=== PATIENT | male | born 1950 | race Caucasian/White ===

== ENCOUNTER 2024-12-15 11:16 | Outpatient (CLI) | payer MEDICARE, OTHER, SELFPAY ==
--- OUTSIDE RECORDS SUMMARY | 2002-05-01 19:35 | XMS_ITS | Encounter Summary ---
Author Organization [facility] Address [address] [place] [address] Phone Support Name Relationship Address Phone Do Ortiz Emergency Contact update [phone] Care Team Providers Care Level Vial Inspector Name Role Phone Unavailable Primary Care Provider Unavailabl e Encounter Details Date Type Department Care Team (Latest Contact Info) Description 05/01/2002 4:35 PM PST Hospital Encounter [facility] [address] [place] [id number] Jaylon Cleary D.D.S. One-Time Outpatient Social History Tobacco Use Types Packs/Day Years Used Date Smoking Tobacco: Former Cigarettes 1 15 0 07/12/1979 - 07/11/1994 Smokeless Tobacco: Never Alcohol Use Standard Drinks/Week Comments Not Currently 3 (1 standard drink = 0.6 oz pur e alcohol) 4/week AUDIT-C Answer Date Recorded Frequency of Alcohol Consumption 2-4 times a sat09/29/2018 Average Number of Drinks 1 or 2 019 Frequency of Binge Drinking Never 09/11 PHQ-2 Answer Date Recorded PHQ-2 Total Score 0 10/17/2022 Sex and Gender Information Value Date Recorded Sex Assigned at Not on file Legal Sex Male 4:47 AM PST Gender Identity Not on file Sexual Orientation Not on file documented as of this encounter Functional Status documented as of this encounter Plan of Treatment Not on file documented as of this encounter Visit Diagnoses Not on filedocumented in this encounter
--- NOTE | 2024-12-15 11:21 | XR_ITS ---
FINAL REPORT CLINICAL HISTORY: Assessment of fecal burden FINDINGS: A single supine view of the abdomen was obtained. There is no prior for comparison. The bowel gas pattern is normal. There is a normal amount of stool in the colon. There are no pathologic calcifications. Osseous structures demonstrate postoperative changes of the lower lumbar spine and bilateral hips. IMPRESSION: No acute intraabdominal abnormality. Normal amount of stool. Reviewed, Interpreted and Dictated by Julia Jose MD Transcribed by Elke Paiz Authenticated and [facility]
--- OUTSIDE RECORDS SUMMARY | 2024-12-15 11:21 | XMS_ITS ---
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 Pertinent negatives include: no family history of melanoma. He is being monitored for concerning skin lesions on an annual basis. He notes that previously treated site(s) are doing well, no recurrences. His current skin lesions are located on the body throughout. The lesions are asymptomatic. Allergies, Adverse Reactions, Alerts Substance RxNorm Reaction(s) Severity Status Start Da te No Known Allergies unspecified active Medications Medication Generic Name RxNorm Strength Strength Unit Route Dose Dose Form Frequency Date Started Date Ended Status Indication Sig clindamycin phosphate clindamy mike phosphat e 19740219 1 % Topica l 1 lotio n QD 04/27/19 20 active Appl y to pimp le like irri jaden on from shav ing Once or twic e beverly y as need ed for flar es. tretinoin tretinoi n 391139 0.025 % Topica l 1 cream Qhs 01/23/20 23 active Appl y on face twic e week ly, grad uall y incr ease as tole rate d to nigh tly. triamcinolo ne acetonide triamcin olone acetonid e 5547107 0.1 % Topica l ointm ent Bid 12/01/19 20 active Appl y to rash on the lowe r legs 1-2 time s beverly y as need ed triamcinolo ne acetonide triamcin olone acetonid e 0434603 0.1 % Topica l 1 ointm ent BID 01/24/20 22 active Rash Appl y to affe cted area s twic e a day for up to two week s as need ed for rash . amoxicillin amoxicil tina 366838 500 mg Oral 1 capsu le prn 09/04/19 18 suspend ed Take 4 tabl ets 1 hour prio r to surg kaitlin amoxicillin amoxicil tina 859004 500 mg Oral capsu le 03/25/19 25 active Take 1 po bid x 5 days doxycycline hyclate doxycycl ine hyclate 8936053 100 mg Oral capsu le 12/01/19 20 suspend ed Take one po bid with a full non dair y meal for 10 days doxycycline hyclate doxycycl ine hyclate 4632668 100 mg Oral capsu le Bid 06/10/19 21 active Take one pill by mout h twic e a day with a full non dair y meal for 10 days . doxycycline hyclate doxycycl ine hyclate 2204416 100 mg Oral 1 capsu le Bid 09/12/19 23 active Post op Take one pill by by mout h twic e a day with a non dair y meal and a full glas s of ramya grady Lipitor atorvast atin 022380 10 mg Oral 1 table t qd 09/30/19 14 active Randi Aspirin aspirin 81 mg po 1 table t qd active BETA LUCILLE NULL 1 qd 09/30/19 14 suspend ed CELEBREX 200 MG CAPS NULL 09/11 10/31 14 suspend ed HYDROXYZINE HCL 10 MG ORAL TABS NULL 60 16 suspend ed TRIAMCINOLO NE ACETONIDE 0.1 % CREA NULL 1 03/22 16 2015 suspend ed TRIAMCINOLO NE ACETONIDE 0.1 % CREA NULL 120 10/26 14 2013 suspend ed TRIAMCINOLO NE ACETONIDE 0.1 % EXT CREA NULL 454 01/26/20 16 suspend ed Problems Problem Code Type Status Date of Diagnosis Date of Resolution Neoplasm of uncertain behavior of skin (disorder) 05101368(S NOMED) Diagnosis active 12/08/2024 Actinic keratosis (disorder) 669915615( SNOMED) Diagnosis active 12/08/2024 History of malignant melanoma of the skin (situation) 2369004532 08(SNOMED) Diagnosis active 12/08/2024 History of malignant neoplasm of skin (situation) 090411197( SNOMED) Diagnosis active 12/08/2024 Seborrheic keratosis (disorder) 099165467( SNOMED) Diagnosis active 12/08/2024 Melanocytic nevus of trunk (disorder) 627591599( SNOMED) Diagnosis active 12/08/2024 Disorder of pigmentation (disorder) 370488398( SNOMED) Diagnosis active 12/08/2024 Hemangioma of skin and subcutaneous tissue (disorder) 044800109( SNOMED) Diagnosis active 12/08/2024 Skin changes due to chronic exposure to non-ionizing radiation (disorder) 846979756( SNOMED) Diagnosis active 12/08/2024 Patient encounter status (finding) 208356648( SNOMED) Diagnosis active 12/08/2024 Actinic keratosis (disorder) 909774080( SNOMED) Diagnosis active 09/02/2024 History of malignant melanoma of the skin (situation) 9163095894 08(SNOMED) Diagnosis active 09/02/2024 History of malignant neoplasm of skin (situation) 252117123( SNOMED) Diagnosis active 09/02/2024 Seborrheic keratosis (disorder) 162944309( SNOMED) Diagnosis active 09/02/2024 Melanocytic nevus of trunk (disorder) 868961018( SNOMED) Diagnosis active 09/02/2024 Disorder of pigmentation (disorder) 121390546( SNOMED) Diagnosis active 09/02/2024 Hemangioma of skin and subcutaneous tissue (disorder) 950610477( SNOMED) Diagnosis active 09/02/2024 Skin changes due to chronic exposure to non-ionizing radiation (disorder) 681705120( SNOMED) Diagnosis active 09/02/2024 Patient encounter status (finding) 371654800( SNOMED) Diagnosis active 09/02/2024 Surgical follow-up (finding) 736099321( SNOMED) Diagnosis active 07/28/2024 Surgical follow-up (finding) 633438149( SNOMED) Diagnosis active 07/16/2024 Melanoma in situ of trunk (disorder) 150794673( SNOMED) Diagnosis active 07/15/2024 Neoplasm of uncertain behavior of skin (disorder) 64795837(S NOMED) Diagnosis active 06/22/2024 History of malignant neoplasm of skin (situation) 717739876( SNOMED) Diagnosis active 06/22/2024 Seborrheic keratosis (disorder) 188606914( SNOMED) Diagnosis active 06/22/2024 Melanocytic nevus of trunk (disorder) 833486706( SNOMED) Diagnosis active 06/22/2024 Disorder of pigmentation (disorder) 902585348( SNOMED) Diagnosis active 06/22/2024 Hemangioma of skin and subcutaneous tissue (disorder) 875162082( SNOMED) Diagnosis active 06/22/2024 Skin changes due to chronic exposure to non-ionizing radiation (disorder) 020189858( SNOMED) Diagnosis active 06/22/2024 Patient encounter status (finding) 145034417( SNOMED) Diagnosis active 06/22/2024 Surgical follow-up (finding) 204394213( SNOMED) Diagnosis active 06/11/2024 Surgical follow-up (finding) 846090944( SNOMED) Diagnosis active 05/06/2024 Surgical follow-up (finding) 890231806( SNOMED) Diagnosis active 04/15/2024 Patient encounter status (finding) 528567731( SNOMED) Diagnosis active 04/15/2024 Surgical follow-up (finding) 912725978( SNOMED) Diagnosis active 04/03/2024 Basal cell carcinoma of nose (disorder) 806980947( SNOMED) Diagnosis active 03/25/2024 Surgical follow-up (finding) 883904646( SNOMED) Diagnosis active 03/02/2024 Basal cell carcinoma of upper extremity (disorder) 448002616( SNOMED) Diagnosis active 02/17/2024 Basal cell carcinoma of nose (disorder) 421570368( SNOMED) Diagnosis active 02/17/2024 Neoplasm of uncertain behavior of skin (disorder) 49325935(S NOMED) Diagnosis active 01/01/2024 History of malignant neoplasm of skin (situation) 250880918( SNOMED) Diagnosis active 01/01/2024 Seborrheic keratosis (disorder) 191500248( SNOMED) Diagnosis active 01/01/2024 Melanocytic nevus of trunk (disorder) 481154667( SNOMED) Diagnosis active 01/01/2024 Disorder of pigmentation (disorder) 824066506( SNOMED) Diagnosis active 01/01/2024 Hemangioma of skin and subcutaneous tissue (disorder) 926121775( SNOMED) Diagnosis active 01/01/2024 Skin changes due to chronic exposure to non-ionizing radiation (disorder) ( SNOMED) Diagnosis active 01/01/2024 Patient encounter status (finding) 438513237( SNOMED) Diagnosis active 01/01/2024 History of malignant neoplasm of skin (situation) 342512941( SNOMED) Diagnosis active 10/01/2023 Basal cell carcinoma of nose (disorder) 075245173( SNOMED) Diagnosis active 07/30/2023 Basal cell carcinoma of nose (disorder) 889566063( SNOMED) Diagnosis active 07/24/2023 Neoplasm of uncertain behavior of skin (disorder) 77903809(S NOMED) Diagnosis active 06/26/2023 Actinic keratosis (disorder) ( SNOMED) Diagnosis active 04/29/2023 Acne vulgaris (disorder) 86374354(S NOMED) Diagnosis active 04/29/2023 History of malignant neoplasm of skin (situation) 217274228( SNOMED) Diagnosis active 04/29/2023 Seborrheic keratosis (disorder) 939255611( SNOMED) Diagnosis active 04/29/2023 Melanocytic nevus of trunk (disorder) 232304417( SNOMED) Diagnosis active 04/29/2023 Disorder of pigmentation (disorder) 982634618( SNOMED) Diagnosis active 04/29/2023 Hemangioma of skin and subcutaneous tissue (disorder) 445186688( SNOMED) Diagnosis active 04/29/2023 Skin changes due to chronic exposure to non-ionizing radiation (disorder) ( SNOMED) Diagnosis active 04/29/2023 Patient encounter status (finding) 254733034( SNOMED) Diagnosis active 04/29/2023 Actinic keratosis (disorder) ( SNOMED) Diagnosis active 01/22/2023 Acne vulgaris (disorder) 25110596(S NOMED) Diagnosis active 01/22/2023 History of malignant neoplasm of skin (situation) 839597549( SNOMED) Diagnosis active 01/22/2023 Atopic dermatitis (disorder) 00098611(S NOMED) Diagnosis active 01/22/2023 Seborrheic keratosis (disorder) 872405736( SNOMED) Diagnosis active 01/22/2023 Melanocytic nevus of trunk (disorder) 662992928( SNOMED) Diagnosis active 01/22/2023 Disorder of pigmentation (disorder) 954125039( SNOMED) Diagnosis active 01/22/2023 Hemangioma of skin and subcutaneous tissue (disorder) 514254820( SNOMED) Diagnosis active 01/22/2023 Skin changes due to chronic exposure to non-ionizing radiation (disorder) ( SNOMED) Diagnosis active 01/22/2023 Patient encounter status (finding) 404265820( SNOMED) Diagnosis active 01/22/2023 Surgical follow-up (finding) 538677032( SNOMED) Diagnosis active 09/18/2022 Basal cell carcinoma of face (disorder) 247365841( SNOMED) Diagnosis active 09/11/2022 Neoplasm of uncertain behavior of skin (disorder) 29758560(S NOMED) Diagnosis active 07/24/2022 Actinic keratosis (disorder) ( SNOMED) Diagnosis active 07/24/2022 Atopic dermatitis (disorder) 87120806(S NOMED) Diagnosis active 07/24/2022 History of malignant neoplasm of skin (situation) 159106030( SNOMED) Diagnosis active 07/24/2022 Seborrheic keratosis (disorder) 474889420( SNOMED) Diagnosis active 07/24/2022 Melanocytic nevus of trunk (disorder) 599497952( SNOMED) Diagnosis active 07/24/2022 Disorder of pigmentation (disorder) 219269695( SNOMED) Diagnosis active 07/24/2022 Hemangioma of skin and subcutaneous tissue (disorder) 115382995( SNOMED) Diagnosis active 07/24/2022 Skin changes due to chronic exposure to non-ionizing radiation (disorder) 164177396( SNOMED) Diagnosis active 07/24/2022 Patient encounter status (finding) 304482573( SNOMED) Diagnosis active 07/24/2022 Actinic keratosis (disorder) ( SNOMED) Diagnosis active 01/23/2022 Atopic dermatitis (disorder) 44468306(S NOMED) Diagnosis active 01/23/2022 History of malignant neoplasm of skin (situation) 832221165( SNOMED) Diagnosis active 01/23/2022 Seborrheic keratosis (disorder) 897012686( SNOMED) Diagnosis active 01/23/2022 Melanocytic nevus of trunk (disorder) 010949194( SNOMED) Diagnosis active 01/23/2022 Disorder of pigmentation (disorder) 782312291( SNOMED) Diagnosis active 01/23/2022 Hemangioma of skin and subcutaneous tissue (disorder) 610114276( SNOMED) Diagnosis active 01/23/2022 Skin changes due to chronic exposure to non-ionizing radiation (disorder) 438330748( SNOMED) Diagnosis active 01/23/2022 Patient encounter status (finding) 244100471( SNOMED) Diagnosis active 01/23/2022 Surgical follow-up (finding) 864609807( SNOMED) Diagnosis active 06/23/2020 Basal cell carcinoma of upper extremity (disorder) 244470907( SNOMED) Diagnosis active 06/10/2020 Neoplasm of uncertain behavior of skin (disorder) 15375829(S NOMED) Diagnosis active 05/24/2020 Actinic keratosis (disorder) 688901200( SNOMED) Diagnosis active 05/24/2020 History of malignant neoplasm of skin (situation) 752969560( SNOMED) Diagnosis active 05/24/2020 Seborrheic keratosis (disorder) 103078197( SNOMED) Diagnosis active 05/24/2020 Disorder of pigmentation (disorder) 367615840( SNOMED) Diagnosis active 05/24/2020 Melanocytic nevus of trunk (disorder) 982317242( SNOMED) Diagnosis active 05/24/2020 Hemangioma of skin and subcutaneous tissue (disorder) 351275792( SNOMED) Diagnosis active 05/24/2020 Encounter for removal of sutures Z48.02(ICD -10) Diagnosis active 12/15/2019 Basal cell carcinoma of skin of other part of trunk C44.519(IC D-10) Diagnosis active 12/01/2019 Actinic keratosis L57.0(ICD- 10) Diagnosis active 12/01/2019 Intrinsic (allergic) eczema L20.84(ICD -10) Diagnosis active 12/01/2019 Neoplasm of uncertain behavior of skin D48.5(ICD- 10) Diagnosis active 11/24/2019 Actinic keratosis L57.0(ICD- 10) Diagnosis active 11/24/2019 Personal history of other malignant neoplasm of skin Z85.828(IC D-10) Diagnosis active 11/24/2019 Other seborrheic keratosis L82.1(ICD- 10) Diagnosis active 11/24/2019 Other melanin hyperpigmentation L81.4(ICD- 10) Diagnosis active 11/24/2019 Melanocytic nevi of trunk D22.5(ICD- 10) Diagnosis active 11/24/2019 Hemangioma of skin and subcutaneous tissue D18.01(ICD -10) Diagnosis active 11/24/2019 Encounter for procedure for purposes other than remedying health state, unspecified Z41.9(ICD- 10) Diagnosis active 08/06/2019 Personal history of other malignant neoplasm of skin Z85.828(IC D-10) Diagnosis active 07/13/2019 Dermatitis, unspecified L30.9(ICD- 10) Diagnosis active 07/13/2019 Inflamed seborrheic keratosis L82.0(ICD- 10) Diagnosis active 07/13/2019 Foreign body granuloma of the skin and subcutaneous tissue L92.3(ICD- 10) Diagnosis active 07/13/2019 Carcinoma in situ of skin of trunk D04.5(ICD- 10) Diagnosis active 05/20/2019 Personal history of other malignant neoplasm of skin Z85.828(IC D-10) Diagnosis active 04/27/2019 Other seborrheic keratosis L82.1(ICD- 10) Diagnosis active 04/27/2019 Melanocytic nevi of right upper limb, including shoulder D22.61(ICD -10) Diagnosis active 04/27/2019 Melanocytic nevi of right lower limb, including hip D22.71(ICD -10) Diagnosis active 04/27/2019 Melanocytic nevi of left upper limb, including shoulder D22.62(ICD -10) Diagnosis active 04/27/2019 Melanocytic nevi of trunk D22.5(ICD- 10) Diagnosis active 04/27/2019 Melanocytic nevi of other parts of face D22.39(ICD -10) Diagnosis active 04/27/2019 Melanocytic nevi of left lower limb, including hip D22.72(ICD -10) Diagnosis active 04/27/2019 Neoplasm of uncertain behavior of skin D48.5(ICD- 10) Diagnosis active 04/27/2019 Furuncle of head [any part, except face] L02.821(IC D-10) Diagnosis active 04/27/2019 Actinic keratosis L57.0(ICD- 10) Diagnosis active 04/27/2019 Other melanin hyperpigmentation L81.4(ICD- 10) Diagnosis active 04/27/2019 Hemangioma of skin and subcutaneous tissue D18.01(ICD -10) Diagnosis active 04/27/2019 Other specified counseling Z71.89(ICD -10) Diagnosis active 04/27/2019 Encounter for procedure for purposes other than remedying health state, unspecified Z41.9(ICD- 10) Diagnosis active 02/26/2019 Encounter for procedure for purposes other than remedying health state, unspecified Z41.9(ICD- 10) Diagnosis active 01/22/2019 Encounter for procedure for purposes other than remedying health state, unspecified Z41.9(ICD- 10) Diagnosis active 11/07/2018 Neoplasm of unspecified behavior of bone, soft tissue, and skin D49.2(ICD- 10) Diagnosis active 10/07/2018 Dermatitis, unspecified L30.9(ICD- 10) Diagnosis active 10/07/2018 Encounter for procedure for purposes other than remedying health state, unspecified Z41.9(ICD- 10) Diagnosis active 10/02/2018 Encounter for procedure for purposes other than remedying health state, unspecified Z41.9(ICD- 10) Diagnosis active 09/05/2018 Encounter for procedure for purposes other than remedying health state, unspecified Z41.9(ICD- 10) Diagnosis active 07/25/2018 Personal history of other malignant neoplasm of skin Z85.828(IC D-10) Diagnosis active 07/25/2018 Hypertrophic scar L91.0(ICD- 10) Diagnosis active 07/25/2018 Furuncle of head [any part, except face] L02.821(IC D-10) Diagnosis active 07/25/2018 Actinic keratosis L57.0(ICD- 10) Diagnosis active 07/25/2018 Dermatitis, unspecified L30.9(ICD- 10) Diagnosis active 07/25/2018 Neoplasm of uncertain behavior of skin D48.5(ICD- 10) Diagnosis active 06/19/2018 Other skin changes due to chronic exposure to nonionizing radiation L57.8(ICD- 10) Diagnosis active 06/19/2018 Encounter for procedure for purposes other than remedying health state, unspecified Z41.9(ICD- 10) Diagnosis active 06/12/2018 Encounter for procedure for purposes other than remedying health state, unspecified Z41.9(ICD- 10) Diagnosis active 05/01/2018 Basal cell carcinoma of skin of lip C44.01(ICD -10) Diagnosis active 04/18/2018 Encounter for procedure for purposes other than remedying health state, unspecified Z41.9(ICD- 10) Diagnosis active 03/20/2018 Neoplasm of uncertain behavior of skin D48.5(ICD- 10) Diagnosis active 03/18/2018 Actinic keratosis L57.0(ICD- 10) Diagnosis active 03/18/2018 Personal history of other malignant neoplasm of skin Z85.828(IC D-10) Diagnosis active 03/18/2018 Other seborrheic keratosis L82.1(ICD- 10) Diagnosis active 03/18/2018 Melanocytic nevi of right upper limb, including shoulder D22.61(ICD -10) Diagnosis active 03/18/2018 Melanocytic nevi of left lower limb, including hip D22.72(ICD -10) Diagnosis active 03/18/2018 Melanocytic nevi of right lower limb, including hip D22.71(ICD -10) Diagnosis active 03/18/2018 Melanocytic nevi of left upper limb, including shoulder D22.62(ICD -10) Diagnosis active 03/18/2018 Melanocytic nevi of other parts of face D22.39(ICD -10) Diagnosis active 03/18/2018 Melanocytic nevi of trunk D22.5(ICD- 10) Diagnosis active 03/18/2018 Other melanin hyperpigmentation L81.4(ICD- 10) Diagnosis active 03/18/2018 Other skin changes due to chronic exposure to nonionizing radiation L57.8(ICD- 10) Diagnosis active 03/18/2018 Hemangioma of skin and subcutaneous tissue D18.01(ICD -10) Diagnosis active 03/18/2018 Other specified counseling Z71.89(ICD -10) Diagnosis active 03/18/2018 Actinic keratosis L57.0(ICD- 10) Diagnosis active 12/31/2017 Other specified disorders of the skin and subcutaneous tissue L98.8(ICD- 10) Diagnosis active 12/31/2017 Hypertrophic scar L91.0(ICD- 10) Diagnosis active 12/31/2017 Basal cell carcinoma of skin of left upper limb, including shoulder C44.619(IC D-10) Diagnosis active 09/17/2017 Encounter for removal of sutures Z48.02(ICD -10) Diagnosis active 09/16/2017 Basal cell carcinoma of skin of scalp and neck C44.41(ICD -10) Diagnosis active 09/03/2017 Other skin changes due to chronic exposure to nonionizing radiation L57.8(ICD- 10) Diagnosis active 09/03/2017 Basal cell carcinoma of skin of scalp and neck C44.41(ICD -10) Diagnosis active 08/21/2017 Neoplasm of uncertain behavior of skin D48.5(ICD- 10) Diagnosis active 08/09/2017 Actinic keratosis L57.0(ICD- 10) Diagnosis active 08/09/2017 Inflamed seborrheic keratosis L82.0(ICD- 10) Diagnosis active 08/09/2017 Melanocytic nevi of right upper limb, including shoulder D22.61(ICD -10) Diagnosis active 08/09/2017 Melanocytic nevi of trunk D22.5(ICD- 10) Diagnosis active 08/09/2017 Melanocytic nevi of left upper limb, including shoulder D22.62(ICD -10) Diagnosis active 08/09/2017 Other seborrheic keratosis L82.1(ICD- 10) Diagnosis active 08/09/2017 Other melanin hyperpigmentation L81.4(ICD- 10) Diagnosis active 08/09/2017 Hemangioma of skin and subcutaneous tissue D18.01(ICD -10) Diagnosis active 08/09/2017 Other specified counseling Z71.89(ICD -10) Diagnosis active 08/09/2017 Neoplasm of unspecified behavior of bone, soft tissue, and skin D49.2(ICD- 10) Diagnosis completed 09/29/2013 10/13/2013 Onychomycosis (disorder) 568195365( SNOMED) Diagnosis active 09/29/2013 Senile hyperkeratosis (disorder) 701587762( SNOMED) Diagnosis active 09/29/2013 Lentigo (disorder) 287414950( SNOMED) Diagnosis active 09/29/2013 Other and unspecified capillary diseases 448.9(ICD- 9) Diagnosis active 09/29/2013 Squamous cell carcinoma (disorder) 705269279( SNOMED) Problem active History of clinical finding in subject (situation) 250779048( SNOMED) Problem active Actinic keratosis (disorder) ( SNOMED) Problem active Actinic keratosis (disorder) ( SNOMED) Problem active Malignant tumor of pancreas (disorder) 954757571( SNOMED) Problem active Basal cell carcinoma of skin (disorder) 317178973( SNOMED) Problem active Malignant melanoma (disorder) 646036561( SNOMED) Problem active Results No data Encounters Service provided at [facility], [address] [place] [address]. Office phone number is [phone]. Office fax number is [phone]. Encounter Diagnosis Location Date / Time Type Neoplasm of Uncertain Behavior (D48.5)Actinic Keratoses (L57.0)History of malignant melanoma (Z85.820)History of squamous cell carcinoma (Z85.828)History of Basal Cell Carcinoma (Z85.828)Seborrheic Keratoses (L82.1)Benign Nevi (D22.5)Solar Lentigines (L81.4)Hemangiomas (D18.01)Actinic Damage (L57.8)Skin Education (Z71.89)MIPS () [facility] 12/08/2024 13:38:00 UTC [id number] Reason For Referral No data Procedures Procedure Date Destruction of premalignant skin lesion (procedure) 12/08/2024 12:00 am UTC Destruction of premalignant skin lesion (procedure) 09/02/2024 12:00 am UTC Removal of suture (procedure) 07/28/2024 12:00 am UTC Excision (procedure) 07/15/2024 12:00 am UTC Shave biopsy (procedure) 06/22/2024 12:0 0 am UTC Laser procedure on skin (procedure) 06/2024 12:00 am UTC Laser procedure on skin (procedure) 03/15 12:00 am UTC Mohs surgery (procedure) 03/26/2024 12:0 0 am UTC Removal of suture (procedure) 03/02/2024 12:00 am UTC Excision (procedure) 02/17/2024 12:00 am UTC Shave biopsy (procedure) 01/01/2024 12:0 0 am UTC Tumor destruction (procedure) 07/30/2023 12:00 am UTC Shave biopsy (procedure) 06/26/2023 12:0 0 am UTC Destruction of premalignant skin lesion (procedure) 04/29/2023 12:00 am UTC Cryotherapy of skin lesion with liquid n itrogen (procedure) 01/22/2023 12:00 am UTC Excision (procedure) 09/11/2022 12:00 am UTC Cryotherapy of skin lesion with liquid n itrogen (procedure) 07/24/2022 12:00 am UTC Shave biopsy (procedure) 07/24/2022 12:0 0 am UTC Cryotherapy of skin lesion with liquid n itrogen (procedure) 01/23/2022 12:00 am UTC Excision (procedure) 06/10/2020 12:00 am UTC Shave biopsy (procedure) 05/24/2020 12:0 0 am UTC Cryotherapy of skin lesion with liquid n itrogen (procedure) 05/24/2020 12:00 am UTC Cryotherapy of skin lesion with liquid n itrogen (procedure) 12/01/2019 12:00 am UTC Excision (procedure) 12/01/2019 12:00 am UTC Cryotherapy of skin lesion with liquid n itrogen (procedure) 11/24/2019 12:00 am UTC Shave biopsy (procedure) 11/24/2019 12:0 0 am UTC Cryotherapy of skin lesion with liquid n itrogen (procedure) 07/13/2019 12:00 am UTC Documentation of past medical history (p rocedure) Documentation of past medical history (p rocedure) Documentation of past medical history (p rocedure) Documentation of past medical history (p rocedure) Documentation of past medical history (p rocedure) Documentation of past medical history (p rocedure) Documentation of past medical history (p rocedure) Documentation of past medical history (p rocedure) Documentation of past medical history (p rocedure) Documentation of past medical history (p rocedure) [employer] Cancer Checklist; Small Intestine: Polypectomy, Segmental Resection, Pancreaticoduodenectomy, Partial or Complete, With or Without Partial Gastrectomy (Whipple Resection) (record artifact) [employer] Cancer Checklist; Small Intestine: Polypectomy, Segmental Resection, Pancreaticoduodenectomy, Partial or Complete, With or Without Partial Gastrectomy (Whipple Resection) (record artifact) Documentation of past medical history (p rocedure) Documentation of past medical history (p rocedure) [employer] Cancer Checklist; Small Intestine: Polypectomy, Segmental Resection, Pancreaticoduodenectomy, Partial or Complete, With or Without Partial Gastrectomy (Whipple Resection) (record artifact) [employer] Cancer Checklist; Small Intestine: Polypectomy, Segmental Resection, Pancreaticoduodenectomy, Partial or Complete, With or Without Partial Gastrectomy (Whipple Resection) (record artifact) Documentation of past medical history (p rocedure) [employer] Cancer Checklist; Small Intestine: Polypectomy, Segmental Resection, Pancreaticoduodenectomy, Partial or Complete, With or Without Partial Gastrectomy (Whipple Resection) (record artifact) Documentation of past medical history (p rocedure) [employer] Cancer Checklist; Small Intestine: Polypectomy, Segmental Resection, Pancreaticoduodenectomy, Partial or Complete, With or Without Partial Gastrectomy (Whipple Resection) (record artifact) Documentation of past medical history (p rocedure) [employer] Cancer Checklist; Small Intestine: Polypectomy, Segmental Resection, Pancreaticoduodenectomy, Partial or Complete, With or Without Partial Gastrectomy (Whipple Resection) (record artifact) Documentation of past medical history (p rocedure) [employer] Cancer Checklist; Small Intestine: Polypectomy, Segmental Resection, Pancreaticoduodenectomy, Partial or Complete, With or Without Partial Gastrectomy (Whipple Resection) (record artifact) Documentation of past medical history (p rocedure) Documentation of past medical history (p rocedure) [employer] Cancer Checklist; Small Intestine: Polypectomy, Segmental Resection, Pancreaticoduodenectomy, Partial or Complete, With or Without Partial Gastrectomy (Whipple Resection) (record artifact) [employer] Cancer Checklist; Small Intestine: Polypectomy, Segmental Resection, Pancreaticoduodenectomy, Partial or Complete, With or Without Partial Gastrectomy (Whipple Resection) (record artifact) Documentation of past medical history (p rocedure) Documentation of past medical history (p rocedure) [employer] Cancer Checklist; Small Intestine: Polypectomy, Segmental Resection, Pancreaticoduodenectomy, Partial or Complete, With or Without Partial Gastrectomy (Whipple Resection) (record artifact) Documentation of past medical history (p rocedure) Documentation of past medical history (p rocedure) Documentation of past medical history (p rocedure) Documentation of past medical history (p rocedure) Documentation of past medical history (p rocedure) Documentation of past medical history (p rocedure) Documentation of past medical history (p rocedure) Documentation of past medical history (p rocedure) Documentation of past medical history (p rocedure) Documentation of past medical history (p rocedure) Documentation of past medical history (p rocedure) Documentation of past medical history (p rocedure) Documentation of past medical history (p rocedure) Documentation of past medical history (p rocedure) Documentation of past medical history (p rocedure) Documentation of past medical history (p rocedure) Documentation of past medical history (p rocedure) Documentation of past medical history (p rocedure) Documentation of past medical history (p rocedure) Documentation of past medical history (p rocedure) [employer] Cancer Checklist; Small Intestine: Polypectomy, Segmental Resection, Pancreaticoduodenectomy, Partial or Complete, With or Without Partial Gastrectomy (Whipple Resection) (record artifact) March 2019 Documentation of past medica l history (procedure) Total Hip Arthroplasty: (10/2012)Total Right Knee Arthroplasty: (2003) Patient requires pre operative antibiotics. Review Of Systems No Data Assessment 1.Neoplasm of Uncertain BehaviorCounselingPhoto-Documentation:.Defer: Procedure to be performed at next visit - Biopsy by shave method; reason to Defer - declines treatment today.Additional Notes2.Actinic KeratosesLiquid Nitrogen: left superior upper back; Aperture Size - A; Duration of freeze thaw-cycle (seconds) - 3; Number of freeze-thaw Cycles - 1 freeze-thaw cycle.3.History of malignant melanomaCounseling4.History of squamous cell carcinomaCounseling5.History of Basal Cell CarcinomaCounseling6.Seborrheic KeratosesCounseling7.Benign NeviCounseling8.Solar LentiginesCounseling9.XgnwrbyjeazDiyusndqqd00.Actinic ZdypwvOedugejbso41.Skin EducationCounselingSunscreen Xiddurnpgxmauoj53.[facility] Quality Plan of Care Future visit for 03/02/2025 - Follow up in 3 months for: Skin Check - 10 minutes Code Detail Instructions [id number] doxycycline hyclate 100 mg capsu le Take one pill by by mouth twice a day with a full glass of water no dairy. [id number] amoxicillin 500 mg capsule Take 1 po bid x 5 days [id number] doxycycline hyclate 100 mg capsu le Take one pill by by mouth twice a day with a non dairy meal and a full glass of water. [id number] tretinoin 0.025 % topical cream Apply on face twice weekly, gradually increase as tolerated to nightly. [id number] tretinoin 0.025 % topical cream Apply on face twice weekly, gradually increase as tolerated to nightly. [id number] triamcinolone aceton kathie 0.1 % topical ointment Apply to affected areas twice a day for up to two weeks as needed for rash. [id number] doxycycline hyclate 100 mg capsu le Take one pill by by mouth twice a day with a non dairy meal and a full glass of water. [id number] triamcinolone aceton kathie 0.1 % topical ointment Apply to affected areas twice a day for up to two weeks as needed for rash. [id number] doxycycline hyclate 100 mg capsu le Take one pill by mouth twice a day with a full non dairy meal for 10 days. [id number] triamcinolone aceton kahtie 0.1 % topical ointment Apply to rash on the lower legs 1-2 times daily as needed [id number] clindamycin 1 % lotion Apply to pimple/CYST like irritation Once or twice daily as needed for flares. [id number] clindamycin 1 % lotion Apply to pimple/CYST like irritation Once or twice daily as needed for flares. [id number] triamcinolone aceton kathie 0.1 % topical ointment Apply to rash on the lower legs 1-2 times daily as needed [id number] doxycycline hyclate 100 mg capsu le Take one po bid with a full non dairy meal for 10 days [id number] triamcinolone aceton kathie 0.1 % topical ointment Apply to rash on the lower legs 1-2 times daily as needed [id number] clindamycin 1 % lotion Apply to pimple/CYST like irritation Once or twice daily as needed for flares. 516774 clindamycin 1 % lotion Apply to pimple like irritation from shaving Once or twice daily as needed for flares. [id number] amoxicillin 500 mg capsule Take 4 tablets 1 hour prior to surgery Instructions * I counseled the patient regarding the following:Instructions: Neoplasms of Uncertain Behavior can be observed, biopsied or surgically removed depending on the level of clinical suspicion.Instructions: Neoplasms of Uncertain Behavior can be observed, biopsied or surgically removed depending on the le abel of clinical suspicion.Contact Office if: patient develops any new lesions that fail to heal, ulcerate or bleed. * I counseled the patient regarding the following:Skin Care: Patients with a history of melanoma should wear broad spectrum sunscreen and sun protective clothing.Expectations: Scars from excisional sites of melanoma should be monitored for any recurrences. Monthly self-skin checks should be performedto monitor for any moles that change in size, shape or color, itch burn or bleed.Contact Office if:Patient notices any new or changing moles, develops constitutional symptoms or develops new lesionswithin or around the previous melanoma scar.I recommended the following: Broad Spectrum Sunscreen SPF 30+Self-Skin Exams * I counseled the patient regarding the following:Skin Care: Patients with a history of non-melanoma skin cancer should wear broad spectrum sunscreen and sun protective clothing.Expectations: Scars from excisional sites of non- melanoma skin cancers should be monitored for any recurrences.Contact Office if: If the patient notices discoloration or a bump arising from a previously stable scar or any new lesions that are not healing. will recheck in 4mo. consider aldara if recurs.I recommended the following: Broad Spectrum Sunscreen SPF 30+ * I counseled the patient regarding the following:Skin Care: Patients with a history of non-melanoma skin cancer should wear broad spectrum sunscreen and sun protective clothing.Expectations: Scars from excisional sites of non- melanoma skin cancers should be monitored for any recurrences.Contact Office if: If the patient notices discoloration or a bump arising from a previously stable scar or any new lesions that are not healing. will recheck in 4mo. consider aldara if recurs.I recommended the following: Broad Spectrum Sunscreen SPF 30+ * I counseled the patient regarding the following:Skin Care: Seborrheic Keratoses are benign. No treatment is necessary.Expectations: Seborrheic Keratoses are benign warty growths. Patients get more ofthem as they age. * I counseled the patient regarding the following:Instructions: Monthly self- skin checks to monitor for any changes in moles are recommended.Expectations: Benign Nevi are pigmented nests of cells within the skin. No treatment is necessary.Contact Office if: Any moles change in size, shape or color; itch, burn or bleed.I recommended the following: SunscreenSelf-Skin Exams * I counseled the patient regarding the following:Skin Care: Lentigines can resolve with broad spectrum sunscreen, sun avoidance, bleaching creams, retinoids, chemical peels and laser.Expectations: Lentigines are benign pigmented lesions that occur on sun-exposed and sun-damaged skin.ABCDs were discussed. Followup if lesions change size, shape, or color.I recommended the following: Sunscreen * I counseled the patient regarding the following:Skin Care: Hemangiomas can resolve with lasers or electrodesiccation.Expectations: Hemangiomas are benign growths. No treatment is necessary. * I counseled the patient regarding the following:Skin Care: Actinic Damage can improve with broad spectrum sunscreen, sun avoidance, bleaching creams, retinoids, chemical peels and laser.Expectations:Actinic Damage is photo-aging from excessive sun exposure. It manifests as unwanted pigmentation, wrinkles and textural thinning of the skin.I recommended the following: Sunscreen * I counseled the patient regarding the following:Sun screen (SPF 30 or greater) should be applied during peak UV exposure (between 10am and 2pm) and reapplied after exercise or swimming.The ABCDEs of melanoma were reviewed with the patient, and the importance of monthly self-examination of moles was emphasized. Should any moles change in shape or color, or itch, bleed or burn, pt will contact our office for evaluation sooner then their interval appointment.I recommended the following: SunscreenSelf-Skin Exams Social History Code Activity Start Date End Date [id number] (SNOMED) Former smoker Sex male Sexual orientation Unspecified Gender identity Unspecified Vital Signs No data
--- OUTSIDE RECORDS SUMMARY | 2024-12-15 11:21 | XMS_ITS | Clinical Summary ---
Author Organization [facility] Address [address] [place] [address] Phone Care Team Providers Care Detasseler Name Role Phone Unavailable Primary Care Provider Unavailabl e Medications metoprolol succinate XL (Toprol-XL) 25 MG 24 hr tablet Take 1 Tab by mouth every day. 12/03/2011 Active testosterone cypionate (Depo-Testoster one) 200 MG/ML injection 12/03/2017 Active acetaminophen (Tylenol 8 Hour) 650 MG ER tablet Take 650 mg by mouth every 6 hours as needed for Moderate Pain. Active atorvastatin (Lipitor) 40 MG tablet Take 40 mg by mouth every day. Active anastrozole (Arimidex) 1 MG chemo tablet Take 1 mg by mouth every day. Takes 1/2 tablet every other day for several weeks Active cholecalciferol (Vitamin D-3) 25 MCG (1000 UT) tablet Take 1,000 Units by mouth. Active Multiple Vitamin (Multi-Vitamin) tablet Take 1 tablet by mouth. Active cyanocobalamin (Vitamin B-12) 100 MCG tablet Inject as directed every 7 (seven) days. Active tiZANidine (Zanaflex) 2 MG tablet Take 1 tablet every 8 hours by oral route as needed. 10/18/2022 Active oxyCODONE (Roxicodone) 10 MG immediate release tablet take 1/2-1 tablet by mouth every 4 hours as needed for pain 10/18/2022 Active Active Problems Problem Noted Date Diagnosed Date Cervical stenosis of spinal canal 10/17/2022 Rotator cuff tear 10/10/2020 Overview (10/22/2024): Added automatically from request for surgery [id number] IPMN (intraductal papillary mucinous neoplasm) 1 03/01/[address] of the abdomen 12/30/2018 Abdominal pain 12/30/2018 Elevated CEA 12/30/2018 Intractable hiccoughs 09/29/2018 Pancreatic mass ([facility]CC) 09/29/2018 Sleep apnea treated with nocturnal BiPAP 019 Class 1 obesity in adult 07/01/2018 Dyslipidemia 07/01/2018 Treatment-emergent central sleep apnea 9 Hypogonadism in male 06/10/2018 Vitamin D deficiency 06/10/2018 Secondary adrenal insufficiency ([facility]HS/HCC) 2018 CAD (coronary artery disease) 07/27/2011 Other chest pain 07/12/2011 Resolved Problems Problem Noted Date Diagnosed Date Resolved Date Constipation 09/29/2018 09/30/2018 Leukocytosis 09/29/2018 09/30/2018 Encounters Date Type Department Care Team Description 10/22/2024 Abstract GENERIC EXTERNAL DATA DEPARTMENT Provider, Generic External Data from Last 3 Months Social History Tobacco Use Types Packs/Day Years Used Date Smoking Tobacco: Never Assessed Sex and Gender Information Value Date Recorded Sex Assigned at Not on file Legal Sex Male 5:34 PM CDT Gender Identity Not on file Sexual Orientation Not on file Plan of Treatment Health Maintenance Due Date Last Done Comments CT Colonography 1951 Colonoscopy 1950 Colorectal Cancer Screening 1950 FIT-DNA 1950 FIT 1950 FOBT 1950 Lipid Panel 1950 Sigmoidoscopy 1950 COVID-19 Vaccine (#1) 01[birth year]09/1956 Depression Screening 1962 Zoster Vaccines (2 of 3) 08/22/2016 06/27/2016 Influenza Vaccine (#1) 2024 8, 12/03/2016 DTaP/Tdap/Td Vaccines (2 - T d or Tdap) 12/03/2026 12/03/2016 Pneumococcal Vaccine: 50+ Years Completed 12/03/2016, 06/04/2016 HIB Vaccines Aged Out No longer eligi ble based on patient's age to complete this topic HPV Vaccines Aged Out No longer eligi ble based on patient's age to complete this topic Hepatitis B Vaccines Aged Out No long er eligible based on patient's age to complete this topic IPV Vaccines Aged Out No longer eligi ble based on patient's age to complete this topic Meningococcal B Vaccine Aged Out No l onger eligible based on patient's age to complete this topic Meningococcal Vaccine Aged Out No bethanie boaz eligible based on patient's age to complete this topic
--- OUTSIDE RECORDS SUMMARY | 2024-12-15 11:21 | XMS_ITS | Clinical Summary ---
Author Organization [facility] Address [address] [place] [address] Phone Support Name Relationship Address Phone Do Ortiz Emergency Contact update 09/26 Care Team Providers Care Log Haul Operator Name Role Phone Pcp Not In Computer Primary Care Provider Raj scott Allergies No known active allergies Medications metoprolol SR (TOPROL XL) 25 MG [id number] her and unspecified hyperlipidemia Take 1 Tab by mouth every day. 30 Each 3 12/03/19 12 Active acetaminophen (TYLENOL 8 HOUR ARTHRITIS PAIN) 650 MG CR tablet Take 650 mg by mouth every 6 hours as needed for Moderate Pain. Active atorvastatin (LIPITOR) 40 MG Tab Take 40 mg by mouth every day. Active anastrozole (ARIMIDEX) 1 MG Tab Take 1 mg by mouth every day. Takes 1/2 tablet every other day for several weeks Active vitamin D (VITAMIND D3) 1000 UNIT Tab Take 1,000 Units by mouth. Active Multiple Vitamin (MULTI-VITAMIN) Tab Take 1 Tablet by mouth. Active cyanocobalamin (VITAMIN B-12) 100 MCG Tab Inject as directed every 7 (seven) days. Active tizanidine (ZANAFLEX) 2 MG tablet Take 1 tablet every 8 hours by oral route as needed. 40 Tablet 10/18/2022 12:14 PM PDT 10/19/19 23 Active Additional Information Patient not taking.Reported on 02/11/2024 oxyCODONE immediate release (ROXICODONE) 10 MG immediate release tablet take 1/2-1 tablet by mouth every 4 hours as needed for pain 42 Tablet 10/18/2022 12:14 PM PDT 10/19/19 23 Active Additional Information Patient not taking.Reported on 02/11/2024 Hospital, Clinic, or Other Facility Administered Medication Ordered Dose Route Frequency Start Date End Date Status testosterone cypionate (DEPO-TESTOSTERONE) injection 300 mgIndications:Fatigue, unspecified type,Hypogonadism in male 300 mg IM EVERY 14 DAYS 12/03/2017 Active Active Problems Problem Noted Date Diagnosed Date Cervical stenosis of spinal canal 10/17/2022 Rotator cuff tear 10/10/2020 Overview (10/10/2020): Added automatically from request for surgery [id number] IPMN (intraductal papillary mucinous neoplasm) 1 03/01/[address] of the abdomen 12/30/2018 Abdominal pain 12/30/2018 Elevated CEA 12/30/2018 Intractable hiccoughs 09/29/2018 Assessment & Plan (09/29/2018 8:49 PM PDT): QTC is acceptable we will try Thorazine Pancreatic mass 09/29/2018 Assessment & Plan (09/29/2018 8:49 PM PDT): MRI with pancreatic protocol ordered as recommended by radiologist [id number] ordered Sleep apnea treated with nocturnal BiPAP 019 Assessment & Plan (09/29/2018 9:05 PM PDT): DID NOT BRING MACHINE Class 1 obesity in adult 07/01/2018 Dyslipidemia 07/01/2018 Treatment-emergent central sleep apnea 9 Hypogonadism in male 06/10/2018 Assessment & Plan (09/29/2018 8:49 PM PDT): Hold testosterone replacement while in the hospital Vitamin D deficiency 06/10/2018 Secondary adrenal insufficiency 06/10/2018 Assessment & Plan (09/29/2018 8:49 PM PDT): Continue Cortef CAD (coronary artery disease ) s/p POBA to LCX 07/27/11 due to atypical anatomy angioplasty only, no stent. 07/27/2011 Assessment & Plan (12/13/2011 4:35 PM PDT): POBA to LCX 40% LAD Other chest pain 07/12/2011 Other and unspecified hyperlipidemia 07/12/2011 Resolved Problems Problem Noted Date Diagnosed Date Resolved Date Constipation 09/29/2018 09/30/2018 Overview (05/13/2023): Replacing diagnoses that were inactivated after May regulatory import Assessment & Plan (09/29/2018 8:49 PM PDT): Severe constipation noted incidentally on CT scan MiraLAX twice daily ordered Leukocytosis 09/29/2018 09/30/2018 Assessment & Plan (09/29/2018 8:50 PM PDT): Mild, Likely reactive, no fever or signs of infection Immunizations Immunization Administration Dates Next Due INFLUENZA TIV (IM) 11/25/2010 Influenza Vaccine Quad Inj (Pf) 12/10/2017,12/03 Pneumococcal Conjugate Vaccine (Prevnar/PCV-13) 06/04/2016 Pneumococcal polysaccharide vaccine (PPSV-23) Tdap Vaccine 12/03/2016 Zoster Vaccine Live (ZVL) (Zostavax) - HISTORICA L DATA 06/27/2016 Family History Relation Name Status Comments Brother 1 Alive Brother 2 Alive Brother 3 Alive Father 86 Mother 62 Social History Tobacco Use Types Packs/Day Years Used Date Smoking Tobacco: Former Cigarettes 1 15 0 07/12/1979 - 07/11/1994 Smokeless Tobacco: Never Tobacco Cessation:Counseling Given: Not Answered Alcohol Use Standard Drinks/Week Comments Not Currently [...] on file Sexual Orientation Not on file Last Filed Vital Signs Vital Sign Reading Time Taken Comments Blood Pressure 110/76 02/11/2024 12:29 PM PST Pulse 76 02/11/2024 12:29 PM PST Temperature 36.5 C (97.7 F) 02/11/2024 12:29 PM PST Respiratory Rate 16 02/11/2024 12:29 PM PST Oxygen Saturation 94% 02/11/2024 12:29 PM PST Inhaled Oxygen Concentration - - Weight 72 kg (158 lb 11.7 oz) 02/11/2024 12:29 P M PST Height 172.7 cm (5' 8 ) 02/11/2024 12:29 PM PST Body Mass Index 24.14 02/11/2024 12:29 PM PST Plan of Treatment Health Maintenance Due Date Last Done Comments Hepatitis C Screening 1950 Colon Cancer Screening Annual FIT 01/09/1996 Colon Cancer Screening Cologuard Stool (FIT DNA) 01/09/1996 Colonoscopy 01/09/1996 Colorectal Cancer Screening 01/09/1996 COVID-19 Vaccine ( season) 2024 11/04/2023, 11/16/2022, 01/03/2022, Additional history exists Influenza Vaccine (#1) 2024 , 11/18/2021, 12/08/2020, Additional history exists IMM DTaP/Tdap/Td Vaccine (2 - Td or Tdap) 12/03/2026 12/03/2016 Pneumococcal Vaccine: 50+ Years Completed 12/03/2016, 06/04/2016 Abdominal Aortic Aneurysm (AAA) Screening Completed 11/25/2018, 09/29/2018 Zoster (Shingles) Vaccines Completed 07/26, 12/14/2019, 06/27/2016 HPV Vaccines Aged Out No longer eligi ble based on patient's age to complete this topic Hepatitis A Vaccine (Hep A) Aged Out No longer eligible based on patient's age to complete this topic Hepatitis B Vaccine (Hep B) Aged Out No longer eligible based on patient's age to complete this topic Meningococcal B Vaccine Aged Out No l onger eligible based on patient's age to complete this topic Meningococcal Immunization Aged Out N o longer eligible based on patient's age to complete this topic Polio Vaccine (Inactivated Polio) Aged Out No longer eligible based on patient's age to complete this topic Medical Devices Implanted Type Area Environmental Projects Advisor Device Identifier Shelf Expiration Date Model / Serial / Lot Cement Orthopedic Hv Us () Implanted:Qty: 2 on 04/08/2017 by Justin Portillo M.D. at [facility] Cement Right: Knee [employer] 09/10/2018 [id number] / / [id number] Hardware Hardware Description:Hardware jaw Disc 6 X 16 Mm Prestige Implanted:Qty: 1 on 10/17/2022 by Mitch White M.D. at [facility] Hardware Spine Cervical [employer] 01/12/2030 [id number] / / [id number] Disc 6 X 16 Mm Prestige Implanted:Qty: 1 on 10/17/2022 by Mitch White M.D. at [facility] Hardware Spine Cervical [employer] - DIV 06/05/2030 [id number] / / [id number] Hip Hip Knee Knee Implant Gns Ii Cmt Tib Size 6 Right Implanted:Qty: 1 on 04/08/2017 by Justin Portillo M.D. at [facility] Knee Right: Knee [employer] 01/01/2027 [id number] / / [id number] Implant Lgn Ps High Flex Xlpe Sz 5-6 13mm Implanted:Qty: 1 on 04/08/2017 by Justin Portillo M.D. at [facility] Right: Knee [employer] 04/04/2025 [id number] / / [id number] Implant Gns Ii Resurf Pat 35mm Implanted:Qty: 1 on 04/08/2017 by Justin Portillo M.D. at [facility] Right: Knee [employer] 01/19/2027 [id number] / / [id number] Implant Gii Oxin P/S Fem Right Sz 7 Implanted:Qty: 1 on 04/08/2017 by Justin Portillo M.D. at [facility] Right: Knee [employer] 12/05/2026 [id number] / / [id number] Total Knee Arthroplasty Implanted:Qty: 1 on 04/08/2017 by Justin Portillo M.D. at [facility] Right: Knee [employer] Suture [place] 2.8mm Implanted:Qty: 1 on 03/13/2018 by Dangelo Real M.D. at [facility] Left: Shoulder [employer] ENDOSCOPY - 09/27/2020-359 / / [id number] Procedures Procedure Name Priority Date/Time Associated Diagnosis Comments [id number] WITH STAT 09/29/2018 7:34 PM PDT from Last 3 Months or Most Recently Relevant to Health Maintenance Results * [id number] WITH (09/29/2018 7:34 PM PDT) Anatomical Region Laterality Modality Abdomen Computed Tomogra phy Impressions 09/29/2018 7:49 PM PDT 1. No evidence of bowel obstruction or focal inflammatory change. 2. Cystic mass within the pancreatic head and uncinate process. This may represent a pancreatic cystic neoplasm versus a tortuous dilated minor pancreatic duct related to presence of pancreas divisum. This could be further evaluated with a contrast enhanced pancreatic protocol MRI. 3. Sigmoid diverticulosis. 4. Hepatic and splenic granulomas. Narrative 09/29/2018 7:49 PM PDT 09/29/2018 7:21 PM HISTORY/REASON FOR EXAM: Constant hiccups for over a week. Generalized weakness and malaise. TECHNIQUE/EXAM DESCRIPTION: CT scan of the abdomen and pelvis with contrast. Contrast-enhanced helical scanning was obtained from the diaphragmatic domes through the pubic symphysis following the bolus administration of 100 mL of Omnipaque 350 nonionic contrast without complication. Low dose optimization technique was utilized for this CT exam including automated exposure control and adjustment of the mA and/or kV according to patient size. COMPARISON: No prior studies available. FINDINGS: CT Abdomen: There is no evidence of focal consolidation or pleural effusion seen within the lung bases. There are hepatic and splenic granulomas. No evidence of hepatic or splenic mass. The kidneys are normal. The adrenal glands are normal. Abnormal appearance of the pancreatic head. There is either a cystic mass or a markedly dilated and tortuous minor duct in the area of the uncinate process and pancreatic head. This measures approximately 3 x 2.4 cm in size. There is atherosclerotic change of the aorta. No evidence of aneurysm. CT Pelvis: There is no evidence of bowel obstruction or inflammatory change. The appendix is not discretely identified. There is sigmoid diverticulosis. There are bilateral hip arthroplasties. There is no evidence of free fluid. Procedure Note Tay Jeffery M.D. - 09/29/2018 09/29/2018 7:21 PM HISTORY/REASON FOR EXAM: Constant hiccups for over a week. Generalized weakness and malaise. TECHNIQUE/EXAM DESCRIPTION: CT scan of the abdomen and pelvis with contrast. Contrast-enhanced helical scanning was obtained from the diaphragmaticdomes through the pubic symphysis following the bolus administration of100 mL of Omnipaque 350 nonionic contrast without complication. Low dose optimization technique was utilized for this CT exam includingautomated exposure control and adjustment of the mA and/or kV according topatient size. COMPARISON: No prior studies available. FINDINGS: CT Abdomen: There is no evidence of focal consolidation or pleural effusion seenwithin the lung bases. There are hepatic and splenic granulomas. No evidence of hepatic or splenic mass. The kidneys are normal. The adrenal glands are normal. Abnormal appearance of the pancreatic head. There is either a cystic massor a markedly dilated and tortuous minor duct in the area of the uncinateprocess and pancreatic head. This measures approximately 3 x 2.4 cm insize. There is atherosclerotic change of the aorta. No evidence of aneurysm. CT Pelvis: There is no evidence of bowel obstruction or inflammatory change. The appendix is not discretely identified. There is sigmoiddiverticulosis. There are bilateral hip arthroplasties. There is no evidence of free fluid. IMPRESSION: 1. No evidence of bowel obstruction or focal inflammatory change. 2. Cystic mass within the pancreatic head and uncinate process. This mayrepresent a pancreatic cystic neoplasm versus a tortuous dilated minorpancreatic duct related to presence of pancreas divisum. This could befurther evaluated with a contrast enhanced pancreatic protocol MRI. 3. Sigmoid diverticulosis. 4. Hepatic and splenic granulomas. [place] ORDERABLES Final Resu lt from Last 3 Months or Most Recently Relevant to Health Maintenance Insurance MEDICARE [facility] MEDICARE [facility] Advance Directives * Full Code (Latest Code Status on File) Date Activated Date Inactivated Comments 10/17/2022 5:44 PM 10/18/2022 1:50 PM * Full Code Date Activated Date Inactivated Comments 10/10/2020 7:29 AM 10/10/2020 9:29 AM * DNAR/DNI Date Activated Date Inactivated Comments 09/29/2018 9:04 PM 09/30/2018 3:43 PM Question Answer Comments Two RNs may pronounce per policy? (Only for DNAR /DNI Code Status): Yes * Full Code Date Activated Date Inactivated Comments 04/08/2017 9:36 AM 04/09/2017 7:02 PM Question Answer Comments Two RNs may pronounce per po licy? (Only for DNAR/DNI Code Status): Yes Interventions: Perform All Life Jennifer taining Interventions * Full Code Date Activated Date Inactivated Comments 07/27/2011 9:43 AM 07/28/2011 2:07 PM Care Teams Log Haul Operator Relationship Specialty Start Date End Date Pcp Not In Computer PCP - General Family Medicine 09/26/22
--- OUTSIDE RECORDS SUMMARY | 2024-12-15 11:21 | XMS_ITS | Encounter Summary ---
Author Organization [facility] Address [address] [phone] Phone Care Team Providers Care Sap Architect Name Role Phone Unavailable Primary Care Provider Unavailabl e Encounter Details Date Type Department Care Team (Late st Contact Info) Description 10/22/2024 Abstract GENERIC EXTERNAL DATA DEPARTMENT Provider, Generic External Data Social History Tobacco Use Types Packs/Day Years Used Date Smoking Tobacco: Never Assessed Sex and Gender Information Value Date Recorded Sex Assigned at Not on file Legal Sex Male 5:34 PM CDT Gender Identity Not on file Sexual Orientation Not on file documented as of this encounter Plan of Treatment Not on file documented as of this encounter Visit Diagnoses Not on filedocumented in this encounter
--- OUTSIDE RECORDS SUMMARY | 2024-12-15 11:21 | XMS_ITS | Clinical Summary ---
Author Organization [facility] Address [address] [place] [address] Care Team Providers Care Agent Ticketing Gate Name Role Phone Mer Mayorga NP Primary Care Provider + Allergies No known active allergies Medications Medication Sig Dispensed Refills Start Date End Date Status aspirin 81 MG chewable tablet Chew 1 tablet (81 mg total) daily Active anastrozole (ARIMIDEX) 1 MG tablet Take 0.5 tablets by mouth every 7 days Active Cholecalciferol 25 MCG (1000 UT) tablet Take 1 tablet (1,000 Units total) by mouth daily Active Multiple Vitamin (Multi-Vitamin) tablet Take 1 tablet by mouth daily Active Holly-3 Fatty Acids (Fish Oil) 1200 MG CAPS Take 1 tablet by mouth daily Active DEPO-TESTOSTERONE (DEPOTESTOTERONE CYPIONATE) 200 MG/ML injection Inject 1.5 mL (300 mg total) as directed every 7 days 12/03/2017 Active traMADol (ULTRAM) 50 MG tablet Take 1 tablet (50 mg total) by mouth 2 (two) times a day Active acetaminophen (TYLENOL) 650 MG CR tablet Take 1 tablet (650 mg total) by mouth 2 (two) times a day Active Somatropin (Omnitrope) 5 MG/1.5ML SOCT Inject under the skin Inject 6 times a week Active celecoxib (CeleBREX) 200 MG capsule Take 1 capsule (200 mg total) by mouth daily 02/15/2023 Active metoprolol succinate ER (TOPROL-XL) 25 MG 24 hr tablet TAKE 1 TABLET BY MOUTH EVERY DAY 90 tablet 2 09/04/2023 Active atorvastatin (LIPITOR) 40 MG tablet TAKE 1 TABLET BY MOUTH EVERY DAY 90 tablet 1 11/29/2023 Active Active Problems Problem Noted Date Diagnosed Date History of sleep apnea 07/12/2022 Chronic fatigue 07/12/2022 Pre-procedural cardiovascular examination 2022 Essential (primary) hypertension 07/11/2022 Pancreatic mass 09/29/2018 Overview (04/06/2021): Last Assessment & Plan: MRI with pancreatic protocol ordered as recommended by radiologist CA-[id number] ordered CAD (coronary artery disease) 07/27/2011 Overview (04/06/2021): S/p balloon angioplasty 07/2011 Last Assessment & Plan: POBA to LCX 40% LAD Dyslipidemia 07/12/2011 Social History Tobacco Use Types Packs/Day Years Used Date Smoking Tobacco: Former Cigarettes Smokeless Tobacco: Never Tobacco Cessation:Counseling Given: Not Answered Alcohol Use Standard Drinks/Week Comments Yes 0 (1 standard drink = 0.6 oz pur e alcohol) Sex and Gender Information Value Date Recorded Sex Assigned at Male 08/03/2022 7:33 AM PDT Gender Identity Male 08/03/2022 7:33 AM PDT Sexual Orientation Choose not to disclose 2022 7:33 AM PDT Last Filed Vital Signs Vital Sign Reading Time Taken Comments Blood Pressure 127/83 04/16/2023 1:05 PM PST Pulse 65 04/16/2023 1:05 PM PST Temperature 36.8 C (98.2 F) 08/29/2022 4:26 PM PDT Respiratory Rate 16 08/29/2022 4:26 PM PDT Oxygen Saturation 94% 04/16/2023 1:05 PM PST Inhaled Oxygen Concentration - - Weight 74.8 kg (165 lb) 04/16/2023 1:05 PM PST Height 172.7 cm (5' 8 ) 04/16/2023 1:05 PM PST Body Mass Index 25.09 04/16/2023 1:05 PM PST Plan of Treatment Health Maintenance Due Date Last Done Comments Medicare Annual Wellness (AWV) 1950 COLONOSCOPY 01/09/1996 CT Colonography 01/09/1996 Cologuard [FIT-DNA] 01/09/1996 Colorectal Cancer Screening 01/09/1996 FIT 01/09/1996 FOBT 01/09/1996 SIGMOIDOSCOPY 01/09/1996 FALL RISK SCREENING 01/09/2016 ZOSTER VACCINES (2 of 3) 08/22/2016 06/27/2016 COVID 19 VACCINE ( season) 2024 Influenza Vaccine (#1) 2024 2, 11/12/2019, 12/10/2017, Additional history exists Pneumococcal Vaccine: 50+ years Completed 12/03/2016, 06/04/2016 HIB VACCINES Aged Out No longer eligi ble based on patient's age to complete this topic HPV VACCINES Aged Out No longer eligi ble based on patient's age to complete this topic Hepatitis A Vaccines Aged Out No long er eligible based on patient's age to complete this topic Hepatitis B Vaccines Aged Out No long er eligible based on patient's age to complete this topic MENINGOCOCCAL B VACCINE Aged Out No l onger eligible based on patient's age to complete this topic Care Teams Agent Ticketing Gate Relationship Specialty Start Date End Date Mer Mayorga NP [address] [place] [phone] PCP - General Nurse Practitioner 07/12/22
--- OUTSIDE RECORDS SUMMARY | 2024-12-15 11:21 | XMS_ITS | Encounter Summary ---
Author Organization [facility] Address [address] [place] [address] Phone Support Name Relationship Address Phone Do Ortiz Emergency Contact update [phone]/[phone] Care Team Providers Care Endocrinology Nurse Name Role Phone Pcp Not In Computer Primary Care Provider Raj scott Encounter Details Date Type Department Care Team ([facility] st Contact Info) Description 04/17/2023 Patient Scan [facility] [address] [facility] [place] [address] Outpatient, Physician [address] [place] [address] Social History Tobacco Use Types Packs/Day Years Used Date Smoking Tobacco: Former Cigarettes 1 15 0 07/12/1979 - 07/11/1994 Smokeless Tobacco: Never Alcohol Use Standard Drinks/Week Comments Yes 3 (1 standard drink = 0.6 oz [...] Diagnoses Not on filedocumented in this encounter Care Teams Endocrinology Nurse Relationship Specialty Start Date End Date Pcp Not In Computer PCP - General Family Medicine 09/26/22 documented as of this encounter
--- OUTSIDE RECORDS SUMMARY | 2024-12-15 11:21 | XMS_ITS | Data Portability ---
Author Organization [place] - [facility], auto[employer] - [facility] Address [address] [place] [address] Assessment No assessment recorded. Plan of Treatment Reminders Order Date Submit Date Provider Last Modified By Organization Details Last Modified Time Details Appointments None recorded. Lab None recorded. Referral gastroenter ologist referral - rosa probe to correlate symptoms to reflux 2024 025 [facility], [address], [place], [id number], 12:03:18 Procedures None recorded. Surgeries None recorded. Imaging None recorded. Medication Orders None recorded. Patient TargetsNo targets recorded. Patient InstructionsNo instructions recorded. Reason for Referral [employer] Referral for Hiatal hernia rosa probe to correlate symptoms to reflux Referring Physician: Zhao Boucher, General Surgery, [id number] Encounter Date: 05/22/2024 Results Created Date Observation Date Name Description Value Unit Range Abnormal Flag Note LastModifiedBy Organization Detail LastModifiedTime 05/19/19 25 05/20/2023 RF, upper gastr ointe justa l tract , w/ contr ast PO No observ ation record ed. [email or web address] Not Available 08/2024 17:07:26 Result Notes None recorded. Problems Name Problem SNOMED Code Status Onset Date Resolution Date Notes Provider Name and Address Organization Details Recorded Time Gastroesophage al reflux disease 022284877 Active 2024 [place] - [facility] 19:18:37 Hiatal hernia 02037640 Active 2024 Diaz umana [place] - [facility] 19:19:02 Backache 245606298 Active 2024 Diaz Radford null, [facility] 19:22:45 Pain of shoulder region 32450327 Active 2024 Diaz Radford null, [facility] 19:22:55 Insomnia 153792706 Active 2024 Diaz Radford null, [facility] 19:23:09 Hypertensive disorder 53320078 Active 2024 Diaz Radford null, [facility] 19:25:35 Heart disease 20554275 Active 2024 Diaz Radford null, [facility] 19:26:03 Burping 779296506 Active 2024 Diaz umana, [facility] 19:27:54 Notes:Coronary Angiogram wit h angioplasty 2011 Problem Notes None recorded. Procedures Surgical History Date Name Laterality Status Provider Name and Address Organization Details Recorded Time 2019 pancreaticoduodenectomy completed Diaz [facility] 19:19:56 [facility] 19:24:44 total replacement of hip completed [facility] 19:25:01 total replacement of hip completed [facility] 19:25:15 Imaging Results None recorded. Procedure Notes None recorded. Medical Equipment None Reported. Medications Name Sig Start Date Stop Date Status Note LastModified by Organization Details LastModified Time amoxicillin 500 mg capsule TAKE 1 CAPSULE BY MOUTH TWICE A DAY FOR 5 DAYS 05/22 completed Not Available Not Available Not Available atorvastati n 40 mg tablet Take 1 tablet every day by oral route. active Not Available Not Available No t Available doxycycline hyclate 100 mg capsule TAKE ONE PILL BY BY MOUTH TWICE A DAY WITH A NON DAIRY MEAL AND A FULL GLASS OF WATER. 05/22 completed Not Available Not Available Not Available Ultram 50 mg tablet Take 1 tablet every 6 hours by oral route. 05/22 completed Not Available Not Available Not Available Celebrex 200 mg capsule Take 1 capsule every day by oral route. active Not Available Not Available No t Available metoprolol succinate ER 25 mg tablet,exte nded release 24 hr Take 1 tablet every day by oral route. active Not Available Not Available No t Available tadalafil 20 mg tablet TAKE 1 TABLET 60 MIN PRIOR TO SEXUAL ACTIVITY active Not Available Not Available No t Available Voquezna 20 mg tablet Take 1 tablet every day by oral route. active Not Available Not Available No t Available Vitals Date Recorded Body height Body mass index (BMI) Body weight Oxygen saturation Oxygen saturation in Arterial blood by Pulse oximetry Heart rate Systolic And Diastolic Provider Name and Address Organization Details Last Updated DateTime 172.72 cm 25.1 kg/m2 83143.7 4 g 95 % 95 % 60 /min 108/62 mm[Hg] Any Ngo [facility] 17:31:17 Social History Question Answer Notes LastModified by [employer] Details LastModified Time Tobacco Smoking Status Former Smoker Any umana [facility] 05/22/2024 17:30:57 What Is Your Level Of Caffeine Consumption? Moderate [email or web address] Information not available 05/22/2024 When Did You Quit Smoking? 16+yearssince lastcigarette [email or web address] Information not available 05/22/2024 Has Tobacco Cessation Counseling Been Provided? No [email or web address] Information not available 05/22/2024 Sex: Unknown Functional Status Question Answer Note LastModified by [employer] Details LastModified Time Do you use any illicit or recreational drugs? No [email or web address] Information not available 05/22/2024 Do you or have you ever used any other forms of tobacco or nicotine? No [email or web address] Information not available 05/22/2024 What is your level of alcohol consumption? None [email or web address] Information not available 05/22/2024 Mental Status None recorded. Family History Relationship Description Onset Age of this Age Resolved Age Notes LastModified by Organization Details LastModified Time Father No current problems or disability [email or web address] Not available 05/12 17:30:41 Mother No current problems or disability [email or web address] Not available 05/12 17:30:41 Medical History Condition Response Other Medical History Y Back Pain Y Reflux/GERD Y Hernia Y Heart Disease Y Hypertension Y Past Encounters Encounter ID Performer Location Encounter Start Date Encounter Closed Date Diagnosis/Indication Diagnosis SNOMED-CT Code Diagnosis ICD10 Code Diagnosis IMO Codes Diagnosis Note [id number] Zhao Boucher MD [facility] [address] [facility] [place] [id number] 05/22/2024 17:16:28 05/22/2024 18:14:52 Hiatal hernia 81152711 K44.9 Patient with patient with hiatal hernia and symptoms of belching as well as spasmodic abdominal pain. Unclear whether this is related to his known hiatal hernia. Plan for 48-hour Rosa probe to see if his symptoms correlate with reflux. We did discuss that repair of his hiatal hernia could result in inability to belch which is quite concerning for the patient. Health Concerns Section Related Observation LastModified by Organization Detai ls LastModified Time None Recorded Concern Status LastModified by Organization Details LastModified Time None Recorded Advance Directives Directive None Recorded Payers Insurance Date Sequence Insurance Name Policy Number Policy Hankins Covered Member ID Hankins Member ID Guarantor Name 05/20/2024 1 [place]ICARE [place]: [place]IDIAN Tay Henao [id number] Tay Henao 05/28/2024 2 [employer] (MEDICARE SUPPLEMENT) Tay Henao [id number] Tay Henao Notes Date Note Type Note Provider Name and Address Organization Details Recorded Time 05/22/2024 text/html ROS as noted in the HPI The patient is a 74 year old male who is being seen for a surgical consultation by Dangelo Rios MDfor a hiatal hernia with mild refluxThey describe episodes of reflux, dysphagia, frequent coughing, burping, wheezing, shortness of breath, bloating, chest discomfort, spitting up.These symptoms began approximately 7 years ago. They have been treated with H2 blockers, PPI, antacids, positional changes, weight loss which did not change symptoms I reviewed the upper GI from referring provider which was done on 04/14/24 which shows a small hiatal hernia present. I reviewed the referring providers consult notes. Zhao Boucher MD [address] [place] [address],[address], [place], [phone], [facility] - [facility] 05/22/2024 21:14:24
== END 2024-12-15 23:59 | disposition home or self-care (01) ==
LOC: RAD 11:19
PROVIDERS: Visit Provider Internal Medicine Gastroenterology
DX: R14.0 Abdominal distension (gaseous) (principal); R14.2 Eructation
CPT/HCPCS: 74018